=== PATIENT | female | born 1970 | race Caucasian/White ===

== ENCOUNTER 2021-12-24 10:41 | Emergency (ER) | payer OTHER ==
[~2021-12-24] VITALS: Ht 157.5 cm; Wt 97.5 kg
[2021-12-24 11:08] LABS: ABSOLUTE NEUTROPHILS 2.9 thou/uL (1.4-8.2); BASOPHILS 0.8 % (0.0-2.0); EOSINOPHILS 1.1 % (0.0-3.0); HEMATOCRIT 42.1 % (37.0-47.0); HEMOGLOBIN 14.3 gm/dL (12.0-15.0); LYMPHOCYTES 37.4 % (24.0-44.0); MCH 31.3 pg (26.0-34.0); MCHC 33.9 g/dL (28.0-37.0); MCV 92.3 fL (80.0-100.0); MONOCYTES 7.7 % (1.0-8.0); PLATELET COUNT 221 thou/uL (150-400); RBC 4.56 mil/uL (4.20-5.00); RDW 13.7 % (10.5-14.5); WBC 5.6 thou/uL (4.0-11.0)
[2021-12-24 11:16] LABS: CALCIUM 9.1 mg/dL (8.5-10.1); CREATININE 0.9 mg/dL (0.6-1.0); POTASSIUM 4.2 mmol/L (3.5-5.1)
[2021-12-24 11:26] LABS: ALBUMIN 3.9 g/dL (3.4-5.0); TOTAL BILIRUBIN 0.6 mg/dL (0.2-1.0); TOTAL PROTEIN 7.1 g/dL (6.4-8.2)
[2021-12-24] MEDS ORDERED: BUPROPION XL300 MG PO (11:28)
[2021-12-24 13:19] VITALS: BP 98/53
--- NOTE | 2021-12-26 10:02 | EKG ---
[place] [address] [facility] [place] [address] ELECTROCARDIOGRAM REPORT Name: JENNIFER CUTLER Room #: DEP FAWN Felipe#: [id number] Admission: 12/24/21 Attend Phys: Discharge: 12/24/21 Date of : 74 Report #: [id number] [facility] [place], [place] ED Test Date: 2021-12-24 Test Time: 10:43:51 Pat Name: JENNIFER CUTLER Department: Room: Gender: F Legal Receptionist: RODY : 1970 Requested By: Kameron Lewis Order Number: [id number] MD: Favio Salguero Measurements Intervals [place] Rate: 84 P: 67 MT: 145 QRS: -55 QRSD: 91 T: 44 QT: 367 QTc: 434 Interpretive Statements Sinus rhythm Probable left atrial enlargement Inferior infarct, old Baseline wander in lead(s) II,III,aVF,V3,V4,V5,V6 No previous ECG available for comparison Electronically Signed On 12-25-2021 7:23:44 [employer] by Favio Salguero [email or web address] <ELECTRONICALLY SIGNED> By: Favio Salguero MD, [facility] 12/25/21 0723 D: 01/1042 42 Favio Salguero MD, FACC /EPI
== END 2021-12-24 13:19 | disposition home or self-care (01) ==
LOC: ER 10:41
PROVIDERS: Emergency Medicine
DX: R07.89 Other chest pain (principal); Z20.822 Contact with and (suspected) exposure to COVID-19; Z79.899 Other long term (current) drug therapy; Z87.891 Personal history of nicotine dependence